=== PATIENT | female | born 1985 | race Caucasian/White ===

== ENCOUNTER 2019-01-31 22:35 | Emergency (ER) | payer OTHER ==
[~2019-01-31] VITALS: Ht 157.5 cm; Wt 92.0 kg
[2019-01-31 22:38] VITALS: Ht 157.5 cm; Wt 92.0 kg
[2019-02-01] MEDS ORDERED: MECLIZINE 12.5 MG TAB PO ONE (00:30)
[2019-02-01] MEDS ORDERED: LORAZEPAM 1 MG TAB PO ONE (00:30)
[2019-02-01] MEDS ORDERED: MECL12.574 PO (01:26)
[2019-02-01] MEDS ORDERED: ONDA4TAB14 PO (01:26)
[2019-02-01 01:46] VITALS: BP 122/73; PULSE 79; RESP 18
--- NOTE | 2019-02-01 05:44 | ERD ---
ER Documentation Chief Complaint Chief Complaint LEFT EAR PAIN WITH HEADACHE SINCE 01/19/2019; NO COUGH HPI Patient is 33-year-old female presenting to the ED with left ear pain and headache since January 19. Patient is afebrile vitals normal limits. Patient denies any past medical history. Patient denies any allergies to medication. Patient states the pain is a 6 out of 10 ROS All systems reviewed and are negative except as per history of present illness. Medications Home Meds Active Scripts Ondansetron (Ondansetron Odt) 4 Mg Tab.rapdis, 4 MG PO Q6H PRN for NAUSEA AND/OR VOMITING, #10 TAB Prov:LORETTA MALLOY PA-C 02/01/19 Meclizine Hcl* (Antivert*) 12.5 Mg Tab, 12.5 MG PO Q6H PRN for DIZZINESS, #20 TAB Prov:LORETTA MALLOY PA-C 02/01/19 PMhx/Soc Medical and Surgical Hx: pt denies Medical Hx, pt denies Surgical Hx Hx Alcohol Use: Yes (occasional) Hx Substance Use: No Hx Tobacco Use: No Smoking Status: Never smoker FmHx Family History: No diabetes, No coronary disease, No other Physical Exam Vitals Vital Signs Date Temp Pulse Resp B/P (MAP) Pulse Ox O2 O2 Flow FiO2 Time Delivery Rate 02/01/19 98.6 79 18 122/73 97 01:46 (89) 01/31/19 98.0 88 20 123/72 99 22:38 (89) Physical Exam Const: Mild distress Head: Atraumatic Eyes: Normal Conjunctiva, horizontal nystagmus ENT: Normal External Ears, Nose and Mouth. Neck: Full range of motion. No meningismus. Resp: Clear to auscultation bilaterally Cardio: Regular rate and rhythm, no murmurs Abd: Soft, non tender, non distended. Normal bowel sounds Skin: No petechiae or rashes Neur: Awake and alert Results 24 hrs Laboratory Tests Test 02/01/19 00:36 POC Beta HCG, Qualitative NEGATIVE Current Medications Medications Dose Sig/Pacheco Start Time Status Last (Trade) Ordered Route PRN Stop Time Admin Dose Reason Admin Meclizine 12.5 mg ONCE ONCE 02/01/19 DC 02/01/19 HCl PO 00:30 00:37 (Antivert) 02/01/19 00:31 Lorazepam 1 mg ONCE ONCE 02/01/19 DC 02/01/19 (Ativan) PO 00:30 00:37 02/01/19 00:31 Procedures/MDM Medications given in ER: Meclizine Ativan Patient tolerated medication well with no adverse reactions. Patient reported improvement in pain. Medical decision making: Patient 33-year-old female presenting to the ED with left ear pain since January 19. Patient vitals are within normal limits. Patient's urine was negative. Patient's physical exam noted horizontal nystagmus. Patient was given meclizine and Ativan in the ED. On reevaluation the patient appears to be doing much better. Patient's tympanic membranes are intact nonerythematous no pain on examination. At this time I have low suspicion for otitis media, otitis externa, ruptured tympanic membrane. The patient is afebrile has full range of motion her neck. At this time I have low suspicion for meningitis. Patient is neuro exam only revealed nystagmus no neuro motor deficits. At this time I have low suspicion for TIA or CVA. The patient's symptoms have resided with the medication. The patient feels much better. I have advised patient she needs to follow-up with her primary care provider regarding this visit. Advised patient's if symptoms worsen return to ER immediately. Patient is in agreement treatment plan had no further questions upon discharge Prescription for home: Zofran Meclizine I have discussed with the patient proper use and common side effects to expert with the medication . I advised the patient/family to speak with the pharmacist dispensing the medication to be advised of any potential drug interactions with other medication or supplements they may be taking. Discharge: At this time, patient is stable for discharge and outpatient management. I have instructed the patient to follow-up with his\her primary care physician in 1 to 2 days. I have discussed with the patient the possibility of needing to see a specialist for further work-up and imaging studies if symptoms persist. I have instructed the patient to promptly return to the ER for any new or worsening s ymptoms including increased pain, fever, nausea, vomiting, weakness or LOC. The patient and\or family expressed understanding of and agreement with this plan. All questions were answered. Home care instructions were provided. Disclaimer: Inadvertent spelling and grammatical errors are likely due to EHR\dictation software use and do not reflect on the overall quality of patient care. Also, please note that the electronic time recorded on the note does not necessarily reflect the actual time of the patient encounter. Departure Diagnosis: Primary Impression: Left ear pain Additional Impression: BPV (benign positional vertigo) Laterality: unspecified laterality Qualified Codes: H81.10 - Benign paroxysmal vertigo, unspecified ear Condition: Stable Patient Instructions: Vertigo, Unspecified Referrals: [facility] YOU HAVE RECEIVED A MEDICAL SCREENING EXAM AND THE RESULTS INDICATE THAT YOU DO NOT HAVE A CONDITION THAT REQUIRES URGENT TREATMENT IN THE EMERGENCY DEPARTMENT. FURTHER EVALUATION AND TREATMENT OF YOUR CONDITION CAN WAIT UNTIL YOU ARE SEEN IN YOUR DOCTORS OFFICE WITHIN THE NEXT 1-2 DAYS. IT IS YOUR RESPONSIBILITY TO MAKE AN APPOINTMENT FOR FOLOW-UP CARE. IF YOU HAVE A PRIMARY DOCTOR --you should call your primary doctor and schedule an appointment IF YOU DO NOT HAVE A PRIMARY DOCTOR YOU CAN CALL OUR PHYSICIAN REFERRAL HOTLINE AT IF YOU CAN NOT AFFORD TO SEE A PHYSICIAN YOU CAN CHOSE FROM THE FOLLOWING [facility] [address] [facility] [place] [address] [facility] [facility] [address] [facility] [address] [facility] [address] [facility]. [address] [facility] YOU HAVE RECEIVED A MEDICAL SCREENING EXAM AND THE RESULTS INDICATE THAT YOU DO NOT HAVE A CONDITION THAT REQUIRES URGENT TREATMENT IN THE EMERGENCY DEPARTMENT. FURTHER EVALUATION AND TREATMENT OF YOUR CONDITION CAN WAIT UNTIL YOU ARE SEEN IN YOUR DOCTORS OFFICE WITHIN THE NEXT 1-2 DAYS. IT IS YOUR RESPONSIBILITY TO MAKE AN APPOINTMENT FOR FOLOW-UP CARE. IF YOU HAVE A PRIMARY DOCTOR --you should call your primary doctor and schedule and appointment IF YOU DO NOT HAVE A PRIMARY DOCTOR YOU CAN CALL OUR PHYSICIAN REFERRAL HOTLINE AT . IF YOU CAN NOT AFFORD TO SEE A PHYSICIAN YOU CAN CHOSE FROM THE FOLLOWING [facility]: [facility] [address] [place] [address] [facility] [address] [place] [address] [facility] [address] [place] [address] Additional Instructions: Call your primary care doctor TOMORROW for an appointment during the next 1-2 days.See the doctor sooner or return here if your condition worsens before your appointment time. LORETTA MALLOY PA-C Feb 01, 2019 05:44
== END 2019-02-01 01:47 | disposition home or self-care (01) ==
LOC: FTE 22:35
DX: H81.12 Benign paroxysmal vertigo, left ear (principal)
CPT/HCPCS: 81025; Z7502; Z7610; 99283